=== PATIENT | male | born 1975 | race Caucasian/White ===

== ENCOUNTER 2017-05-26 17:50 | Emergency (ER) | payer BC ==
[~2017-05-26] VITALS: Ht 185.4 cm; Wt 145.8 kg
[~2017-05-26 17:50] MED LIST: ESOMEPRAZOLE MA40 MG PO; LISINOPRIL20 MG PO; MOTRIN600 MG PO; ULTRAM50 MG PO
[2017-05-26 18:23] LABS: HEMATOCRIT 42.5 % (38.0-50.0); MCH 29.5 PG (29.0-34.0); MCHC 34.1 G/DL (30.0-36.0); MCV 86.6 FL (86-99); MEAN PLAT.VOLUME 9.6 uM^3 (9.0-12.4); PLATELET COUNT 263 K/uL (156-360); RBC DIS.WIDTH-CV 12.9 % (11.8-14.6); RBC DIS.WIDTH-SD 40.6 % (39-53); RED BLOOD COUNT 4.91 M/uL (4.00-5.50); WHITE BLOOD COUNT 8.6 K/uL (4.1-10.2)
[2017-05-26 18:33] LABS: CHLORIDE 102 mEq/L (99-109); SODIUM 139 mEq/L (136-147)
[2017-05-26 18:34] LABS: GLUCOSE 114 mg/dL (70-99)
[2017-05-26 18:36] LABS: ANION GAP 13 MEQ/L (2-14)
[2017-05-26 18:38] LABS: GFR ESTIMATE (CALCULATED) > 59 mL/min/
[2017-05-26 18:39] LABS: UREA NITROGEN (BUN) 14 mg/dL (9-23)
[2017-05-26 18:45] LABS: TROP-I INTERPRETATION NEGATIVE; TROPONIN-I < 0.01 ng/mL (0.0-0.30)
[2017-05-26 19:59] LABS: TOTAL BILIRUBIN 0.3 mg/dL (0.0-1.0)
[2017-05-26 20:00] LABS: ALKALINE PHOSPHATASE 68 IU/L (3-129)
[2017-05-26 20:03] LABS: DIRECT BILIRUBIN 0.1 mg/dL (0.0-0.3)
[2017-05-26 20:04] LABS: LIPASE 26 U/L (1.0-51.0)
[2017-05-26 21:41] LABS: TROP-I INTERPRETATION NEGATIVE; TROPONIN-I < 0.01 ng/mL (0.0-0.30)
[2017-05-26] MEDS ORDERED: ZOFRAN4 MG PO (22:09)
[2017-05-26] MEDS ORDERED: NORCO 5/3251 TABLET PO (22:09)
[2017-05-26] MEDS ORDERED: ZANTAC150 MG PO (22:09)
[2017-05-26 23:18] VITALS: BP 148/91
== END 2017-05-26 23:19 | disposition home or self-care (01) ==
LOC: EME 17:50
PROVIDERS: Physician Assistant
DX: K80.20 Calculus of gallbladder without cholecystitis without obstruction (principal); I10 Essential (primary) hypertension; Z87.891 Personal history of nicotine dependence
CPT/HCPCS: 71020; 76705; 80048; 80076; 83690; 84484; 85027; 93005; 99281; 99285

== ENCOUNTER 2017-06-17 09:13 | Day surgery (SDC) | payer BC ==
[~2017-06-17] VITALS: Ht 185.4 cm; Wt 145.1 kg
[~2017-06-17 09:13] MED LIST changes: +IBUPROFEN600 MG PO; +NEXIUM40 MG PO; +NORCO 5/3251 TABLET PO; +PRINIVIL20 MG PO; +ZANTAC150 MG PO; +ZOFRAN4 MG PO
[2017-06-17 09:30] VITALS: BP 154/63
[2017-06-17 10:56] LABS: METH RESISTANT S AUREUS PCR NEGATIVE (NEGATIVE)
[2017-06-17 10:59] LABS: PROBE CHECK PASS; SPECIMEN PROCESSING CONTROL PASS
[2017-06-17] MEDS ORDERED: COLACE100 MG PO (12:56)
[2017-06-17] MEDS ORDERED: PERCOCET 5/31 TABLET PO (12:56)
[2017-06-17 14:50] VITALS: BP 123/71
[2017-06-17 15:47] VITALS: BP 105/56
[2017-06-17 16:52] VITALS: BP 123/60
== END 2017-06-17 17:20 | disposition home or self-care (01) ==
LOC: SDC 09:13
PROVIDERS: Surgery
PROC: 0FT44ZZ Resection of Gallbladder, Percutaneous Endoscopic Approach (ICD-10-PCS; principal; 2017-06-17)
DX: K80.10 Calculus of gallbladder with chronic cholecystitis without obstruction (principal); Z87.891 Personal history of nicotine dependence; E66.9 Obesity, unspecified; Z68.41 Body mass index [BMI] 40.0-44.9, adult; G89.29 Other chronic pain; I10 Essential (primary) hypertension; K21.9 Gastro-esophageal reflux disease without esophagitis; Z82.49 Family history of ischemic heart disease and other diseases of the circulatory system
CPT/HCPCS: 87641; 88304; J0330; J0690; J1170; J1885; J2250; J2300; J2405; J2710; J2765; J3010